=== PATIENT | male | born 1955 | race African-American/Black ===

== ENCOUNTER → 2017-09-03 | Day surgery (SDC) | payer OTHER ==
[~2017-09-03] MED LIST: PROPOFOL 40 ML IV
[2017-09-03] MEDS: IV RINGERS,LACTATED 1000ML 1,000 ML IV ×2 (08:00)
== END | disposition home or self-care (01) ==
LOC: SURG 07:34
DX: D12.2 Benign neoplasm of ascending colon (principal); I10 Essential (primary) hypertension; J45.909 Unspecified asthma, uncomplicated
CPT/HCPCS: 45385; 88305; J2704